=== PATIENT | male | born 1950 | race Two or more races ===

== ENCOUNTER → 2017-07-06 | Emergency (ER) | payer OTHER ==
[~2017-07-06] VITALS: Ht 172.7 cm; Wt 69.9 kg
[~2017-07-06] MED LIST: ATACAND4 MG; NORVASC2.5 M1; OSEL75CA PO
== END | disposition home or self-care (01) ==
LOC: ER 18:33
DX: J11.1 Influenza due to unidentified influenza virus with other respiratory manifestations (principal)